=== PATIENT | female | born 1980 | race Caucasian/White ===

== ENCOUNTER 2018-01-28 06:39 | Day surgery (SDC) | payer OTHER ==
[~2018-01-28] VITALS: Ht 162.6 cm; Wt 73.0 kg
[~2018-01-28 06:39] MED LIST: ALPR.5; CHOL10002; PROP10; SERT100
[2018-01-28] MEDS ORDERED: Tylenol325 MG PO (07:27)
[2018-01-28] MEDS ORDERED: Ibuprofen Ib200 MG PO (07:27)
[2018-01-28] MEDS ORDERED: Zovirax200 MG (07:32)
== END 2018-01-28 10:20 | disposition home or self-care (01) ==
LOC: ORSCSDS 06:39
PROVIDERS: Obstetrics & Gynecology
PROC: 0U5B8ZZ Destruction of Endometrium, Via Natural or Artificial Opening Endoscopic (ICD-10-PCS; principal; 2018-01-28 08:00)
DX: N92.1 Excessive and frequent menstruation with irregular cycle (principal)
CPT/HCPCS: 88305; J0690; J1100; J2250; J2405; J2765; J3010; J7120

== ENCOUNTER 2019-08-04 07:02 | Day surgery (SDC) | payer OTHER ==
[~2019-08-04] VITALS: Ht 162.6 cm; Wt 76.1 kg
[~2019-08-04 07:02] MED LIST changes: -ALPR.5; +ALPR.5 PO; +Ibuprofen Ib200 MG PO; -PROP10; +PROP10 PO; -SERT100; +SERT100 PO; +Tylenol325 MG PO; +Zovirax200 MG PO
--- NOTE | 2019-08-04 07:31 | NUR ---
History, Chart, Medications and Allergies reviewed before start of procedure. Lungs clear T/O to Auscultation. Patient confirms NPO status and agrees with scheduled surgery. Pre-Op teaching done. Pt verbalizes understanding.
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
[2019-08-05 04:03] LABS: BASOPHILS ABSOLUTE AUTO 0.02 K/mm3 (0.00-0.23); BASOPHILS PERCENT AUTO 0 % (0-2); EOSINOPHILS ABSOLUTE AUTO 0.01 K/mm3 (0.00-0.68); EOSINOPHILS PERCENT AUTO 0 % (0-6); Hematocrit 30.3 % (33.0-51.0); Hemoglobin 9.6 g/dL (11.5-16.0); IMMATURE GRAN ABSOLUTE AUTO 0.05 K/mm3 (0.00-0.10); IMMATURE GRAN PERCENT AUTO 0 % (0-1); LYMPHOCYTES ABSOLUTE AUTO 1.42 K/mm3 (0.84-5.20); LYMPHOCYTES PERCENT AUTO 12 % (21-46); MONOCYTES ABSOLUTE AUTO 0.88 K/mm3 (0.16-1.47); MONOCYTES PERCENT AUTO 8 % (4-13); Mean Corpuscular HGB 25.9 pg (26.0-34.0); Mean Corpuscular HGB Conc 31.7 g/dL (31.5-36.5); Mean Corpuscular Volume 82 fL (80-100); Mean Platelet Volume 11.9 fL (9.1-12.4); NEUTROPHILS PERCENT AUTO 79 % (41-73); Platelet Count 229 K/mm3 (150-400); RDW Coefficient Variation 14.5 % (11.7-14.2); RDW Standard Deviation 42.9 fL (35.1-46.3); Red Blood Cell Count 3.71 M/mm3 (3.80-5.20); White Blood Cell Count 11.58 K/mm3 (4.00-11.30)
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
[2019-08-05] MEDS ORDERED: IBU800 MG PO (11:51)
[2019-08-05] MEDS ORDERED: DOCU100 PO (11:52)
[2019-08-05] MEDS ORDERED: Milk Of Ma400 MG/5 M PO (11:53)
[2019-08-05] MEDS ORDERED: Percocet 5-3251 EACH PO (11:55)
[2019-08-05] MEDS ORDERED: PROM25 PO (11:56)
[2019-08-05] MEDS ORDERED: SIME80CH PO (11:56)
--- NOTE | 2019-08-05 12:37 | NUR ---
DISCHARGE SUMMARY PT A&OX4, VSS, WALKED OFF LEFT FLOOR WITH SIGNIFICANT OTHER, REFUSED WC OUT, WITH ALL PERSONAL POSSESSIONS INCLUDING DC INSTRUCTIONS AND 1 SCRIPT: PHENERGAN, PERC, MOTRIN. DC INS PROVIDED. PT REP UNDERSTANDING THOSE INSTRUCTIONS INCLUDING PELVIC REST, NO LIFTING >10 LBS, FU APPT WITH DR. STEPHANIE MEDINA.
== END 2019-08-05 12:16 | disposition home or self-care (01) ==
LOC: ORSCMMR 07:02 → ORD 08:30 → ORSCMMR 08:30 → SURS 12:41 → ORSCMMR 08-05 12:16
PROVIDERS: Obstetrics & Gynecology
PROC: 0UT7FZZ Resection of Bilateral Fallopian Tubes, Via Natural or Artificial Opening With Percutaneous Endoscopic Assistance (ICD-10-PCS; principal; 2019-08-04 08:30)
PROC: 0UT9FZZ Resection of Uterus, Via Natural or Artificial Opening With Percutaneous Endoscopic Assistance (ICD-10-PCS; principal; 2019-08-04 08:30)
DX: N92.1 Excessive and frequent menstruation with irregular cycle (principal); N94.6 Dysmenorrhea, unspecified; N84.0 Polyp of corpus uteri; D25.9 Leiomyoma of uterus, unspecified; N80.3 Endometriosis of pelvic peritoneum; F32.9 Major depressive disorder, single episode, unspecified; Z79.899 Other long term (current) drug therapy
CPT/HCPCS: 36415; 85025; 88307; J0690; J1100; J1885; J2250; J2270; J2405; J2704; J3010; J7030; J7120